=== PATIENT | female | born 1950 | race American Indian/Alaskan Native ===

== ENCOUNTER 2017-02-23 06:39 | Day surgery (SDC) | payer OTHER ==
[2017-02-23 06:55] VITALS: BMI 30.9
[2017-02-23] MEDS ORDERED: Propofol 10 mg/ml Inj (20 ML) ONE ×3 (07:58→08:46)
[2017-02-23 09:16] VITALS: TEMP 97.8
[2017-02-23 09:26] VITALS: O2SAT 100
[2017-02-23 09:52] VITALS: BP 123/71; PULSE 68; RESP 19
== END 2017-02-23 10:28 | disposition home or self-care (01) ==
LOC: MERGE 06:39 → C.ENDO 06:39
PROVIDERS: ATTEND Internal Medicine
DX: Z12.11 Encounter for screening for malignant neoplasm of colon (principal); D12.4 Benign neoplasm of descending colon; D12.7 Benign neoplasm of rectosigmoid junction; K57.30 Diverticulosis of large intestine without perforation or abscess without bleeding; K64.8 Other hemorrhoids
CPT/HCPCS: 45380; 88305; J2704

== ENCOUNTER 2018-10-09 08:57 | Day surgery (SDC) | payer OTHER ==
[2018-10-09 09:29] VITALS: BMI 33.6
[2018-10-09] MEDS ORDERED: Lactated Ringer's 1,000 ML IV ONE (11:15)
[2018-10-09 12:25] VITALS: TEMP 98.5; O2SAT 100
[2018-10-09 14:08] VITALS: BP 150/67; PULSE 80; RESP 15
== END 2018-10-09 13:25 | disposition home or self-care (01) ==
LOC: C.ENDO 08:57
PROVIDERS: ATTEND Internal Medicine Gastroenterology
DX: Z12.11 Encounter for screening for malignant neoplasm of colon (principal); K63.5 Polyp of colon; K57.30 Diverticulosis of large intestine without perforation or abscess without bleeding; K64.2 Third degree hemorrhoids; Z79.01 Long term (current) use of anticoagulants; Z87.19 Personal history of other diseases of the digestive system; J44.9 Chronic obstructive pulmonary disease, unspecified; I11.0 Hypertensive heart disease with heart failure; I50.9 Heart failure, unspecified; E78.5 Hyperlipidemia, unspecified; Z86.73 Personal history of transient ischemic attack (TIA), and cerebral infarction without residual deficits
CPT/HCPCS: G0105; J7120

== ENCOUNTER 2019-01-30 10:10 | Day surgery (SDC) | payer OTHER ==
[2019-01-30 10:38] VITALS: BMI 29.9
--- NOTE | 2019-01-30 11:24 | CP.SDSHP ---
Same Day Surgery H & P - History Proposed Procedure: colonoscopy Pre-Op Diagnosis: history of colon polyps - Previous Medical/Surgical History Cardiac: Hypertension Neuro: TIA/CVA - Allergies Allergies: Allergies No Known Allergies Allergy (Verified 10/09/18 09:29) - Physical Exam General Appearance: NAD Vital Signs: Vital Signs 01/30/19 10:38 Temperature 97.5 F L Pulse Rate 110 H Respiratory 18 Rate Blood Pressure 148/86 O2 Sat by Pulse 97 Oximetry Mental Status: Alert & Oriented x3 Neuro: WNL Heart: WNL Lungs: WNL GI: WNL - {Optional Preform as Required} Abdomen: WNL - Impression Pt. Evaluated Today:Candidate for Anesthesia & Procedure: Yes - Date & Time Date: 01/30/19 Time: 11:24 Short Stay Discharge - Short Stay Discharge Admitting Diagnosis/Reason for Visit: H/O OF COLON POLYPS Disposition: HOME/ ROUTINE
[2019-01-30] MEDS ORDERED: Propofol 10 mg/ml Inj (20 ML) ONE ×2 (11:27→11:44)
[2019-01-30] MEDS ORDERED: Lidocaine Hydrochloride 5 ML INJ ONE (11:27)
[2019-01-30] MEDS ORDERED: ePHEDrine 50 mg/ml Inj ONE (11:27)
[2019-01-30 12:14] VITALS: TEMP 97.1
[2019-01-30 12:16] VITALS: O2SAT 100
[2019-01-30 12:45] VITALS: BP 129/52; PULSE 88; RESP 19
== END 2019-01-30 12:45 | disposition home or self-care (01) ==
LOC: C.ENDO 10:10
PROVIDERS: ATTEND Internal Medicine Gastroenterology
DX: Z12.11 Encounter for screening for malignant neoplasm of colon (principal); Z86.010 Personal history of colon polyps; D12.5 Benign neoplasm of sigmoid colon
CPT/HCPCS: 45380; 88305; J2704

== ENCOUNTER 2019-04-03 08:11 | Outpatient (CLI) | payer OTHER | END 2019-04-03 08:12 | disposition home or self-care (01) | LOC: C.MRIC 08:11 | DX: I63.9 Cerebral infarction, unspecified (principal) ==